=== PATIENT | female | born 1955 | race Caucasian/White ===

== ENCOUNTER → 2016-12-08 | Outpatient (CLI) | payer MEDICAID | LOC: FIMAGING 14:26 | PROVIDERS: ATTEND Pain Medicine Interventional Pain Medicine | DX: M51.36 Other intervertebral disc degeneration, lumbar region (principal); M50.322 Other cervical disc degeneration at C5-C6 level; M50.323 Other cervical disc degeneration at C6-C7 level; M12.88 Other specific arthropathies, not elsewhere classified, other specified site; M99.71 Connective tissue and disc stenosis of intervertebral foramina of cervical region ==

== ENCOUNTER → 2017-07-09 | Outpatient (CLI) | payer MEDICAID | LOC: FCPNEURO 23:51 | PROVIDERS: ATTEND Internal Medicine Sleep Medicine | DX: G47.33 Obstructive sleep apnea (adult) (pediatric) (principal); G47.61 Periodic limb movement disorder ==

== ENCOUNTER 2017-09-30 12:09 | Emergency (ER) | payer MEDICAID ==
[2017-09-30] MEDS ORDERED: ONDANSETRON 4 MG/2 ML VIAL IVP ONE ×2 (12:55→13:57)
[2017-09-30] MEDS ORDERED: ONDANSETRON 4 MG/2 ML VIAL ONE (12:56)
[2017-09-30] MEDS ORDERED: FAMOTIDINE 20 MG/NACL 50 ML IV ONE (12:59)
[2017-09-30] MEDS ORDERED: NS 1,000 ML IV ONE ×2 (12:59)
--- NOTE | 2017-09-30 13:02 | EDPHY ---
H & P Stated Complaint: Nausea, vomiting, diarrhea for 2 hours. Time Seen by Provider: 09/30/17 12:52 HPI/ROS: CHIEF COMPLAINT: Nausea vomiting and diarrhea HISTORY OF PRESENT ILLNESS: Patient is a 61-year-old female with a history of mast cell activation syndrome who comes to the emergency department complaining nausea vomiting and diarrhea for the last 2 hr. No fever. She thinks that she had some pH is illness smoothie. No blood in her vomit or diarrhea. No sick contacts. She stopped taking antihistamines syndrome. For her mast cell activation syndrome 2 days ago because there make him he to tired. She denies headache. She denies chest pain or shortness of breath. REVIEW OF SYSTEMS: Constitutional: denies: chills, fever, recent illness, recent injury EENTM: denies: blurred vision, double vision, nose congestion Respiratory: denies: cough, shortness of breath Cardiac: denies: chest pain, irregular heart rate, lightheadedness, palpitations Gastrointestinal/Abdominal: See HPI Genitourinary: denies: dysuria, frequency, hematuria, pain Musculoskeletal: denies: joint pain, muscle pain Skin: denies: lesions, rash, jaundice, bruising Neurological: denies: headache, numbness, paresthesia, tingling, dizziness, weakness Hematologic/Lymphatic: denies: blood clots, easy bleeding, easy bruising Immunologic/allergic: denies: HIV/AIDS, transplant EXAM: GENERAL: Well-appearing, well-nourished and in no acute distress. HEAD: Atraumatic, normocephalic. EYES: Pupils equal round and reactive to light, extraocular movements intact, sclera anicteric, conjunctiva are normal. ENT: TMs normal, nares patent, oropharynx clear without exudates. Moist mucous membranes. NECK: Normal range of motion, supple without lymphadenopathy or JVD. LUNGS: Breath sounds clear to auscultation bilaterally and equal. No wheezes rales or rhonchi. HEART: Regular rate and rhythm without murmurs, rubs or gallops. ABDOMEN: Soft, nontender, normoactive bowel sounds. No guarding, no rebound. No masses appreciated. BACK: No CVA tenderness, no spinal tenderness, step-offs or deformities EXTREMITIES: Normal range of motion, no pitting or edema. No clubbing or cyanosis. NEUROLOGICAL: Cranial nerves II through XII grossly intact. Normal speech, normal gait. 5/5 strength, normal movement in all extremities, normal sensation PSYCH: Normal mood, normal affect. SKIN: Warm, dry, normal turgor, no visible rashes or lesions. Source: Patient Exam Limitations: No limitations - Personal History Current Tetanus Diphtheria and Acellular Pertussis (TDAP): Yes Tetanus Vaccine Date: 2008 - Medical/Surgical History Hx Asthma: No Hx Chronic Respiratory Disease: No Hx Diabetes: No Hx Cardiac Disease: No Hx Renal Disease: No Hx Cirrhosis: No Hx Alcoholism: No Hx HIV/AIDS: No Hx Splenectomy or Spleen Trauma: No Other PMH: Mast cell activation disease. - Family History Significant Family History: No pertinent family hx - Social History Smoking Status: Never smoked Alcohol Use: None Constitutional: Initial Vital Signs Temperature (C) 36.6 C 09/30/17 12:15 Heart Rate 107 H 09/30/17 12:15 Respiratory Rate 20 09/30/17 12:15 Blood Pressure 154/94 H 09/30/17 12:15 O2 Sat (%) 99 09/30/17 12:15 O2 Delivery Mode Room Air O2 (L/minute) 2 Allergies/Adverse Reactions: Sulfa (Sulfonamide Antibiotics) Allergy (Verified 09/09/14 22:21) Home Medications: Medication Instructions Recorded Multivitamin 09/09/14 Promethazine HCl [Phenergan 25mg 25 mg PO TID PRN #10 tab 09/30/17 (RX)] Medical Decision Making - Diagnostics EKG Interpretation: An EKG obtained and was read and documented in trace view. Please see trace view for full reading and report. Sinus tachycardia, no acute ischemic changes or arrhythmias mild ST depression similar to 2015. Imaging Results: Imaging Impressions Abdomen Ultrasound 09/30/17 13:55 Impression: 1. Relatively normal right upper quadrant ultrasound. Findings discussed with Kapil Horner M.D. at 15:33 hour, 09/30/2017. ED Course/Re-evaluation: The patient's abdominal exam is benign. No surgical abdominal history. This may be food poisoning or histamine type rebound. Will treat her with with pepcid as well as fluids and Zofran and observe. 3:45 p.m. patient is still feeling slightly nauseous. I will order a small dose of Haldol. We will continue to hydrate. Fluids were turned off earlier because a were making her cold. 5:20 p.m. the patient is feeling much better. Her heart rate normalized after hydration. She is eager to go home. We discussed indications for returning. Differential Diagnosis: Partial list of the Differential diagnosis considered include but were not limited to; gastritis, food poisoning and although unlikely based on the history and physical exam, I also considered biliary disease, appendicitis, urinary tract infection, obstruction, diverticulitis, volvulus coronary disease. I discussed these differential diagnoses and the plan with the patient as well as the usual and expected course. The patient understands that the diagnosis is provisional and that in medicine we are not always correct and that further workup is often warranted. Usual and customary warnings were given. All of the patient's questions were answered. The patient was instructed to return to the emergency department should the symptoms at all worsen or return, otherwise to followup with the physician as we discussed. - Data Points Laboratory Results: Laboratory Results 09/30/17 12:55 09/30/17 12:55 09/30/17 09/30/17 12:55 12:55 WBC 6.64 10^3/uL 10^3/uL (3.80-9.50) RBC 5.14 10^6/uL 10^6/uL (4.18-5.33) Hgb 15.3 g/dL g/dL (12.6-16.3) Hct 47.7 % H % (38.0-47.0) MCV 92.8 fL fL (81.5-99.8) MCH 29.8 pg pg (27.9-34.1) MCHC 32.1 g/dL L g/dL (32.4-36.7) RDW 14.4 % % (11.5-15.2) Plt Count 283 10^3/uL 10^3/uL (150-400) MPV 10.4 fL fL (8.7-11.7) Neut % (Auto) Not Reported Lymph % (Auto) Not Reported [place] % (Auto) Not Reported Eos % (Auto) Not Reported Baso % (Auto) Not Reported Nucleat RBC Rel Count Not Reported Absolute Neuts (auto) Not Reported Absolute Lymphs (auto) Not Reported Absolute Monos (auto) Not Reported Absolute Eos (auto) Not Reported Absolute Basos (auto) Not Reported Absolute Nucleated RBC Not Reported Immature Gran % Not Reported Seg Neutrophils % 35.0 % % Band Neutrophils % 27.0 % % Lymphocytes % 32.0 % % Monocytes % 2.0 % % Eosinophils % 0 % % Basophils % 0 % % Metamyelocytes % 4.0 % % Myelocytes % 0 % % Promyelocytes % 0 % % Blast Cells % 0 % % Immature Gran # Not Reported Absolute Seg Neuts 2.32 10^/uL 10^/uL (1.70-6.50) Absolute Band Neuts 1.79 10^3/uL H 10^3/uL (0.00-0.70) Absolute Lymphocytes 2.12 10^3/uL 10^3/uL (1.00-3.00) Absolute Monocytes 0.13 10^3/uL L 10^3/uL (0.30-0.80) Absolute Eosinophils 0.00 10^3/uL L 10^3/uL (0.03-0.40) Absolute Basophils 0.00 10^3/uL L 10^3/uL (0.02-0.10) Absolute Metamyelocyte 0.27 10^3/mL H 10^3/mL (0.00-0.00) Absolute Myelocytes 0.00 10^3/mL 10^3/mL (0.00-0.00) Absolute Promyelocytes 0.00 10^3/uL 10^3/uL (0.00-0.00) Absolute Plasma Cells 0.00 10^3/uL 10^3/uL (0.00-0.00) Nucleated RBCs 3.0 /100 WBC H /100 WBC (0-0) RBC/WBC/PLT Morphology NORMAL (NORMAL) Absolute Blast Cells 0.00 10^3/uL 10^3/uL (0.00-0.00) Plasma Cells % 0 % % Platelet Estimate ADEQUATE (ADEQ) Smear Review By Julieta STALLINGS MD Sodium 140 mEq/L mEq/L (135-145) Potassium 3.6 mEq/L mEq/L (3.3-5.0) Chloride 105 mEq/L mEq/L (97-110) Carbon Dioxide 26 mEq/l mEq/l (22-31) Anion Gap 9 mEq/L mEq/L (8-16) BUN 12 mg/dL mg/dL (7-23) Creatinine 0.6 mg/dL mg/dL (0.6-1.0) Estimated GFR > 60 Glucose 112 mg/dL H mg/dL (70-100) Calcium 9.4 mg/dL mg/dL (8.5-10.4) Total Bilirubin 0.5 mg/dL mg/dL (0.1-1.4) Conjugated Bilirubin 0.3 mg/dL mg/dL (0.0-0.5) Unconjugated Bilirubin 0.2 mg/dL mg/dL (0.0-1.1) AST 145 IU/L H IU/L (14-46) ALT 431 IU/L H IU/L (9-52) Alkaline Phosphatase 169 IU/L H IU/L (38-126) Total Protein 7.5 g/dL g/dL (6.3-8.2) Albumin 4.5 g/dL g/dL (3.5-5.0) Lipase 72 IU/L IU/L (23-300) Medications Given: Discontinued Medications Haloperidol Lactate (Haldol Injection) 2.5 mg IVP EDNOW ONE Stop: 09/30/17 15:42 Last Admin: 09/30/17 15:57 Dose: 2.5 mg Hydromorphone HCl (Dilaudid) 0.5 mg IVP EDNOW ONE Stop: 09/30/17 13:58 Last Admin: 09/30/17 14:07 Dose: 0.5 mg Sodium Chloride (Ns) 1,000 mls @ 0 mls/hr IV EDNOW ONE; Wide Open PRN Reason: Protocol Stop: 09/30/17 13:00 Last Admin: 09/30/17 13:05 Dose: 1,000 mls Sodium Chloride (Ns) 1,000 mls @ 0 mls/hr IV EDNOW ONE; Wide Open PRN Reason: Protocol Stop: 09/30/17 13:00 Last Admin: 09/30/17 13:05 Dose: 1,000 mls Famotidine/Sodium Chloride (Pepcid 20 Mg (Premix)) 50 mls @ 200 mls/hr IV EDNOW ONE Stop: 09/30/17 13:13 Last Admin: 09/30/17 13:05 Dose: 50 mls Ondansetron HCl (Zofran) 4 mg IVP EDNOW ONE Stop: 09/30/17 12:56 Last Admin: 09/30/17 12:57 Dose: 4 mg Ondansetron HCl (Zofran) 4 mg IVP EDNOW ONE Stop: 09/30/17 13:58 Last Admin: 09/30/17 14:07 Dose: 4 mg Departure - Departure Disposition: Home, Routine, Self-Care Clinical Impression: Acute gastroenteritis Diarrhea Qualifiers: Diarrhea type: unspecified type Qualified Code(s): R19.7 - Diarrhea, unspecified Condition: Fair Instructions: Gastroenteritis (ED) Referrals: Alexandria Coburn MD [Primary Care Provider] - As per Instructions Prescriptions: Promethazine HCl [Phenergan 25mg (RX)] 25 mg PO TID PRN #10 tab PRN Reason: Nausea & Vomiting
[2017-09-30 13:46] LABS: PLATELET COUNT 283 10^3/uL (150-400)
[2017-09-30] MEDS ORDERED: HYDROmorphONE/DILAUDID 2 MG/ML INJ IVP ONE (13:57)
[2017-09-30] MEDS ORDERED: HALOPERIDOL LACT 5 MG/ML INJ IVP ONE (15:41)
--- NOTE | 2017-09-30 16:54 | CPEKG ---
Heart Rate: 109 RR Interval: 550 P-R Interval: 132 QRSD Interval: 70 QT Interval: 356 QTC Interval: 480 P Holt: 63 QRS Holt: 53 T Wave Holt: -9 EKG Severity - BORDERLINE ECG - EKG Impression: SINUS TACHYCARDIA EKG Impression: PROBABLE LEFT ATRIAL ABNORMALITY EKG Impression: MINIMAL ST DEPRESSION, DIFFUSE LEADS EKG Impression: Similar to August 2014 Electronically Signed By: Kapil Horner 30-Sep-2017 16:55:55
[2017-09-30 17:36] VITALS: BP 112/78
== END 2017-09-30 17:35 | disposition home or self-care (01) ==
DX: K52.9 Noninfective gastroenteritis and colitis, unspecified (principal)
CPT/HCPCS: 96374; J1170; J1630; J2405